=== PATIENT | female | born 1980 | race Caucasian/White ===

== ENCOUNTER → 2025-06-19 | Outpatient (CLI) | payer MEDICAID, SELFPAY ==
--- OUTSIDE RECORDS SUMMARY | 2025-06-19 22:57 | XMS RPT_ITS | CCD ---
Author Organization [facility] Care Team Providers Care Driver/Sales Workers Name Role Phone NO, PHYSICIAN Primary Care Unavailable NO, PHYSICIAN Primary Care Unavailable Unavailable Primary Care Provider Unavailabl e Marla Castellanos Attending Unavailable Unavailable Primary Care Provider Unavailabl e SWIATEK, YESSENIA Referring Unavailable SWIATEK, YESSENIA Attending Unavailable SWIATEK, YESSENIA Attending Unavailable SELF, SELF Referring Unavailable SELF, SELF Referring Unavailable SWIATEK, YESSENIA Attending Unavailable SWIATEK, YESSENIA Attending Unavailable SWIATEK, YESSENIA Referring Unavailable SWIATEK, YESSENIA Attending Unavailable SWIATEK, YESSENIA Referring Unavailable Judie Hardy Attending Provider Allergies Allergy Classification Reported Allergen(s) Allergy Type Date of Onset Reaction(s) Facility (8 sources) Codeine; Translations: [Unknown] Drug Allergy 3 Anaphylaxis, Dyspnea, Swelling [facility] Repository (1 source) Wheat preparation Drug Allergy [address] [facility] Repository (1 source) Milk Containing Products (Dairy) Drug allergy (disorder) [address] [facility] Repository (1 source) Wheat preparation Drug Allergy [address] [facility] (1 source) Milk Containing Products (Dairy) Allergy to substance [address] [facility] Medications Current Medications Medication Drug Class(es) Dates Sig (Normalized) Sig (Original) Magnesium (1 source) Start: 02-10-2025 take 1 tablet by mouth once daily Magnesium 200 mg tablet Active 200 mg PO daily February 10, 2025 12:00am Multivitamin tablet (1 source) Start: 02-10-2025 Multivitamin tablet Active 1 {tbl} PO EVERY MORNING February 10, 2025 12:00am saccharomyces boulardii 250 mg oral capsule (1 source) Start: 02-10-2025 take 1 capsule by mouth twice daily Saccharomyces Boulardii (Daily Probiotic (S. Boulardii)) 250 mg capsule Active 250 mg PO TWICE A DAY February 10, 2025 12:00am Completed/Discontinued Medications Medication Drug Class(es) Dates Sig (Normalized) Sig (Original) diclofenac sodium 75 mg delayed release oral tablet (3 sources) Nonsteroidal Anti-inflammatory Drug Start: 04-04-2025 End: 05-04-2025 take 1 tablet by mouth twice daily diclofenac EC [address] tablet Indications: Sprain of right foot, initial encounter Take 1 tablet by mouth 2 times daily for 10 days. 20 tablet 1 04/04/2025 05/04/2025 Discontinued (Therapy completed) Problems Active Problems Problem Classification Problem Date Documented Da te Episodic/Chronic Menstrual disorders (2 sources) Irregular periods; Translations: [Irregular menstruation, unspecified] 06-19-2025 Chronic Other connective tissue disease (2 sources) Pain of toe of right foot; Translations: [Pain in right toe(s)] 05-31-2024 Episodic Other connective tissue disease (4 sources) Pain in right foot; Translations: [Pain in right foot] Onset: 04-04-2025 04-04-2025 Episodic Other connective tissue disease (1 source) Tendinitis of right posterior tibial tendon; Translations: [Posterior tibial tendinitis, right leg] 05-04-2025 Episodic Other connective tissue disease (1 source) Pain in right foot; Translations: [Pain in right foot] Onset: 04-04-2025 Episodic Other diseases of bladder and urethra (1 source) Urethritis; Translations: [Other specified disorders of urethra] 06-19-2025 Episodic Sprains and strains (2 sources) Sprain of right foot; Translations: [Unspecified sprain of right foot, initial encounter] 04-04-2025 Episodic Unclassified (2 sources) Consult; Translations: [Consult] Onset: 04-04-2025 Past or Other Problems Problem Classification Problem Date Documented Da te Episodic/Chronic Other connective tissue disease (2 sources) Pain in right toe(s); Translations: [Pain in right toe(s)] Onset: 05-31-2024 Episodic Other injuries and conditions due to external causes (6 sources) Bone injury; Translations: [Other injury of unspecified body region, initial encounter] Onset: 05-31-2024 05-31-2024 Episodic Results Test Name Value Interpretation Reference Range Facil ity XR FOOT RIGHT 3+ VIEWSon XR FOOT RIGHT 3+ VIEWS HISTORY: 45-year-old female pain medial foot. COMPARISON: Right great toe 05/31/2024. TECHNIQUE: 3 views right foot, weightbearing. FINDINGS: Normal arch. No significant degenerative change. No stress fracture. No dislocation. Several incidental ossicles adjacent to the lateral aspect of the cuboid would not be acute. IMPRESSION: No explanation for pain. Normal [facility] XR TOE 1ST RIGHT 2+ VIEWSon 06-02-2024 XR TOE 1ST RIGHT 2+ VIEWS EXAM: XR TOE 1ST RIGHT 2+ VIEWS HISTORY: pain COMPARISON: None. FINDINGS/IMPRESSION: 1. No fracture or dislocation. 2. No opaque foreign body or significant degenerative change. Normal [facility] Vital Signs Date Time Vital Sign Value Performing Clinician Wilfredo hardwick 06-19-2025 09:12-0400 Body height 162.56 cm Judie Nunn EXPERIMENTAL ASSEMBLER-C Work Phone: [facility] 06-19-2025 09:12-0400 Body mass index (BMI) [Ratio] 21.2 kg/m2 Judie Nunn EXPERIMENTAL ASSEMBLER-C Work Phone: [facility] 06-19-2025 09:120400 Body weight 56.24 kg Judie Nunn EXPERIMENTAL ASSEMBLER-C Work Phone: [facility] 06-19-2025 09:12-0400 Diastolic blood pressure 68 mm[Hg] Judie Nunn EXPERIMENTAL ASSEMBLER-C Work Phone: [facility] 06-19-2025 09:12-0400 Systolic blood pressure 102 mm[Hg] Judie Nunn EXPERIMENTAL ASSEMBLER-C Work Phone: [facility] 05-04-2025 09:57-0400 Body height 162.6 cm Yessenia Freitas DPM Work Phone: [facility] 05-04-2025 09:57-0400 Body mass index (BMI) [Ratio] 20.25 kg/m2 Yessenia Freitas DPM Work Phone: [facility] 05-04-2025 09:57-0400 Body weight 53.52 kg Yessenia Swiatek DPM Work Phone: [facility] 05-04-2025 09:57-0400 Diastolic blood pressure 70 mm[Hg] Yessenia Ericatek DPM Work Phone: [facility] 05-04-2025 09:57-0400 Heart rate 60 /min Yessenia Reyesatek DPM Work Phone: [facility] 05-04-2025 09:57-0400 Systolic blood pressure 110 mm[Hg] Yessenia Reyesatek DPM Work Phone: [facility] 04-04-2025 12:32-0400 Body height 162.6 cm Yessenia Reyesatek DPM Work Phone: [facility] 04-04-2025 12:32-0400 Body mass index (BMI) [Ratio] 20.25 kg/m2 Yessenia Ericatek DPM Work Phone: [facility] 04-04-2025 12:32-0400 Body weight 53.52 kg Yessenia Reyesatek DPM Work Phone: [facility] 04-04-2025 12:32-0400 Diastolic blood pressure 82 mm[Hg] Yessenia Ericatek DPM Work Phone: [facility] 04-04-2025 12:32-0400 Heart rate 62 /min Yessenia Ericatek DPM Work Phone: [facility] 04-04-2025 12:32-0400 Systolic blood pressure 128 mm[Hg] Yessenia Ericatek DPM Work Phone: [facility] 05-31-2024 10:37-0400 Body height 162.6 cm Yessenia Ericatek DPM Work Phone: [facility] 05-31-2024 10:37-0400 Body mass index (BMI) [Ratio] 20.25 kg/m2 Yessenia Ericatek DPM Work Phone: [facility] 05-31-2024 10:37-0400 Body weight 53.52 kg Yessenia Freitas DPM Work Phone: [facility] 05-31-2024 10:37-0400 Diastolic blood pressure 60 mm[Hg] Yessenia Freitas DPM Work Phone: [facility] 05-31-2024 10:37-0400 Heart rate 73 /min Yessenia Freitas DPM Work Phone: [facility] 05-31-2024 10:37-0400 Systolic blood pressure 100 mm[Hg] Yessenia Freitas DPM Work Phone: [facility] Encounters Encounter Date Encounter Type Care Provider Facility Start: 06-19-2025 End: 06-19-2025 ambulatory Judie SEPULVEDA Work Phone: -[facility] @ Start: 06-19-2025 End: 06-19-2025 Patient encounter procedure Judie SEPULVEDA -[facility] @ Start: 06-19-2025 End: 06-19-2025 Patient encounter status Judie SEPULVEDA [facility] Start: 05-04-2025 End: 05-04-2025 Office outpatient visit 15 minutes Yessenia SAMM Work Phone: [facility] Comment on above: Posterior tibial ten dinitis, right (Primary Dx); Sprain of right foot, initial encounter; Pain in right foot Start: 05-04-2025 ambulatory [facility] Start: 04-04-2025 End: 04-04-2025 Office outpatient visit 15 minutes Yessenia Freitas DPM Work Phone: [facility] Comment on above: Sprain of right foot , initial encounter (Primary Dx); Pain in right foot Start: 04-04-[address] [facility] Start: 04-04-2025 End: 04-04-2025 Subsequent hospital visit by physician Yessenia Freitas DPM Work Phone: [facility] Comment on above: Arrived Start: 05-31-2024 End: 05-31-2024 Office outpatient visit 15 minutes Yessenia Freitas DPSylvie Work Phone: [facility] Comment on above: Contusion of bone (P rimary Dx); Toe pain, right Start: 05-31-[address] [facility] Start: 05-31-2024 End: 05-31-2024 Subsequent hospital visit by physician Yessenia Freitas DPSylvie Work Phone: [facility]3] IMAGING Comment on above: Arrived Start: 02-26-2022 ambulatory Marla Castellanos [facility] Start: 07-06-2020 End: 07-10-2020 Patient encounter procedure PHYSICIAN [facility] Start: 07-19-2019 End: 07-23-2019 Patient encounter procedure PHYSICIAN [facility] Plan of Treatment Date Care Activity Detail Author Start: 07-17-2025 Influenza vaccination INFLUENZ A VACCINE (Season Ended) [facility] Start: 05-04-2025 End: 05-04-2025 Patient encounter procedure 05/04/2025 10:10 AM EDT Office Visit [facility] [address] [place] [address] Yessenia Freitas, DPM [address] [place] [address] [facility] Start: 01-25-2025 Screening for malign ant neoplasm of colon COLORECTAL CANCER SCREENING DISCUSSION [facility] Start: 07-17-2024 COVID-19 VACCINE ( season) COVID-19 VACCINE ( season) [facility] Start: 07-17-2024 Influenza vaccination INFLUENZA VACC INE (#1) [facility] Start: 05-31-2024 End: 05-31-2025 XR Toes - right Views [facility] Comment on above: Expected: 05/31/2024 , Expires: 05/31/2025 1 Occurrences starti ng 05/31/2024 until 05/31/2024 Start: 07-17-2023 COVID-19 VACCINE ( season) COVID-19 VACCINE ( season) [facility] Start: 2020 Lipid panel LIPID SCREENING [facility] Start: 2020 Screening for malign ant neoplasm of breast MAMMOGRAM SCREENING DISCUSSION [facility] Start: 01-25-2001 Screening for malign ant neoplasm of cervix CERVICAL CANCER SCREENING DISCUSSION [facility] Start: 01-25-1999 Hepatitis B vaccination HEP B VACCINE (1 of 3 - 19+ 3-dose series) [facility] Start: 01-25-1999 Third diphtheria, tetanus and acellular pertussis (DTaP) vaccination TDAP (ADULT) [facility] Start: 01-25-1995 HIV screening HIV SCREENING DISCUSSION [facility] Start: 1980 Hepatitis C screening HEPATITI S C VIRUS SCREENING [facility] Start: 1980 Tetanus vaccination TETANUS [facility] Estradiol (E2) [Mass/volume] in Serum or Plasma [facility] Follicle stimulating hormone measurement [facility] T4 free measurement [facility] Thyroid stimulating hormone measurement [facility] End: 04-04-2025 XR Foot - right 3 Views [facility] Comment on above: 1 Occurrences starti ng 04/04/2025 until 04/04/2025 Payers Date Payer Category Payer Unknown [employer] [id number] 2024-Present [address] [place] [id number] 2023 Managed Care (unspecified) [employer] [id number] 2022 Self-pay 2022 Unknown [id number] 2020 Unknown [id number] 2018 Unknown [id number] 1980 Unknown [id number] 1980 Unknown [id number] 1980 Unknown [id number] 1980 Unknown [id number] 1980 Unknown [id number] 1980 Unknown [id number] 1980 Unknown [id number] Unknown [id number] Social History Date Type Detail Facility Start: 05-31-2024 End: 06-19-2025 Tobacco smoking status NHIS Never smoked tobacco [facility] Start: 05-31-2024 Tobacco use and exposure Smokeless tobacco non-user [facility] Start: 05-31-2024 End: 05-04-2025 History of Social function [facility] Start: 05-31-2024 End: 05-04-2025 Tobacco use panel [facility] Start: 1980 Sex assigned at Not on file A [facility] Start: 05-25-2024 Sex Female (finding) [facility] Start: 04-03-2025 Gender identity Identifies as female gender (finding) [facility] Start: 04-03-2025 Sexual orientation Heterosexual (fin ding) [facility] Start: 1980 Sex Assigned At Female [facility] Clinical Notes 05-31-2024 to 05-04-2025 Yessenia Freitas, FIDELIA - 05/04/2025 10:10 AM HORACIOmo Nam - 05/04/2025 10:10 AM EDJose Boland MA - 04/04/2025 1:00 PM Magdalena Freitas, FIDELIA - 04/04/2025 1:00 PM EDTPatient Instructions Note Date & Type Note Facility 05-04-2025 History of Presen t illness Narrative Patient: Breanna Menchaca Date: 05/04/2025 Chief Complaint: She is a 45 y.o. year old female who presents today with a complaint of No chief complaint on file. . Subjective: She states that her foot is is better when it is in the boot, but still has pain She has been in a cam walker for 4 weeks. 04/04/25 the right foot has been hurting for months. She has been doing trail running. Has been going to PT. No direct injury Allergies: Allergies Allergen Reactions Codeine Anaphylaxis, Dyspnea and Swelling Medications: Current Outpatient Medications: diclofenac EC [address] tablet, Take 1 tablet by mouth 2 times daily for 10 days., Disp: 20 tablet, Rfl: 1 No past medical history on file. No past surgical history on file. Social History Occupational History Employer: [employer] EMPLOY[employer] Tobacco Use Smoking status: Never Smokeless tobacco: Never Substance and Sexual Activity Alcohol use: Not on file Drug use: Not on file Sexual activity: Not on file @ROS@ No notes on file Objective: There were no vitals filed for this visit. Examination: The patient is appropriately dressed, articulate, awake, alert, and oriented x 3, appears stated age and looks to be in good health. Vascular: Dorsalis pedis and posterior tibial pulses are palpable right Dermatological: There is no evidence of: erythema, ecchymosis or open lesions to feet. Skin color is noted to be normal. Skin texture is noted to be normal Neurological: Gross and light sensations normal to lower extremity Normal muscle mass appreciated to both the lower extremity and foot right Musculoskeletal: neg pain right foot base of the 1st met at the 1st TMT + mild pain at the insertion of the posterior tibial tendon. And along the side of the ankle Impression: Breanna was seen today for follow-up. Diagnoses and all orders for this visit: Sprain of right foot, initial encounter Pain in right foot Posterior tibial tendinitis, right Treatment:Patient was seen and evaluated today in clinic and a history and physical exam was completed. The diagnosis and the etiology was explained to the patient in detail. The treatment plan will be as follows: Discontinue cam walker Will get a dbl strap don kathleen ankle brace Supportive shoe Start to increase activities in 2 weeks Diclofenac prn Follow up prn Nurse Note: Review of Systems Constitutional: Negative for fatigue, fever and unexpected weight change. HENT: No difficulty swallowing No change in voice Respiratory: Negative for cough, shortness of breath and wheezing. Cardiovascular: Positive for leg swelling. Negative for chest pain and palpitations. Gastrointestinal: Negative for constipation, diarrhea, nausea and vomiting. Neurological: Negative for tremors, weakness and numbness. Psychiatric/Behavioral: Negative for sleep disturbance. The patient is not nervous/anxious. Nursing Assessment: Physical Exam documented in this encounter [facility] 04-04-2025 History of Presen t illness Narrative Nurse Note: Review of Systems Constitutional: Negative for fatigue, fever and unexpected weight change. HENT: No difficulty swallowing No change in voice Respiratory: Negative for cough, shortness of breath and wheezing. Cardiovascular: Negative for chest pain, palpitations and leg swelling. Gastrointestinal: Negative for constipation, diarrhea, nausea and vomiting. Neurological: Negative for tremors, weakness and numbness. Psychiatric/Behavioral: Negative for sleep disturbance. The patient is not nervous/anxious. Nursing Assessment: Physical Exam Patient: Breanna Menchaca Date: 04/04/2025 Chief Complaint: She is a 45 y.o. year old female who presents today with a complaint of Chief Complaint Patient presents with Right Foot - Pain . Subjective: She states that the right foot has been hurting for months. She has been doing trail running. Has been going to PT. No direct injury Allergies: Allergies Allergen Reactions Codeine Anaphylaxis, Dyspnea and Swelling Medications: No current outpatient medications on file. No past medical history on file. No past surgical history on file. 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 HENT: No difficulty swallowing No change in voice Respiratory: Negative for cough, shortness of breath and wheezing. Cardiovascular: Negative for chest pain, palpitations and leg swelling. Gastrointestinal: Negative for constipation, diarrhea, nausea and vomiting. Neurological: Negative for tremors, weakness and numbness. Psychiatric/Behavioral: Negative for sleep disturbance. The patient is not nervous/anxious. Nursing Assessment: Physical Exam Objective: Vitals: 04/04/25 1232 BP: 128/82 Pulse: 62 Weight: 53.5 kg (118 lb) Height: 1.626 m (5' 4) Examination: The patient is appropriately dressed, articulate, awake, alert, and oriented x 3, appears stated age and looks to be in good health. Vascular: Dorsalis pedis and posterior tibial pulses are palpable bilateral. Capillary filling time is brisk at the level of the digital willy bilaterally. There are no ischemic skin changes evident to bilateral lower extremities. Dermatological: There is no evidence of: erythema, ecchymosis or open lesions to feet. Skin color is noted to be normal. Skin texture is noted to be normal Neurological: Gross and light sensations normal to lower extremity Normal muscle mass appreciated to both the lower extremity and foot bilateral. The patient can heel and toe walk with ease as well as arise from a seated position unassisted. Musculoskeletal: + pain right foot base of the 1st met at the 1st TMT and mild pain at posterior tibial tendon. No gross deformities. Appropriate muscle tone and symmetry bilateral lower extremities. Impression: Breanna was seen today for pain. Diagnoses and all orders for this visit: Sprain of right foot, initial encounter - diclofenac EC [address] tablet; Take 1 tablet by mouth 2 times daily for 10 days. Pain in right foot Treatment:Patient was seen and evaluated today in clinic and a history and physical exam was completed. The diagnosis and the etiology was explained to the patient in detail. The treatment plan will be as follows: Xray right foot No fracture Will go into cam walker for 4 weeks No running or extra walking The following medications were prescribed today and electronically sent to the patient's pharmacy: Diclofenac 75mg We have discussed what the medication is used for: frequency, length and expected response, as well as, risk, benefits and common side effects. Ice as directed Plan for ankle brace Follow up in 4 weeks documented in this encounter [facility] 04-04-2025 Instructions Yessenia Freitas DPM - 04/04/2025 1:00 PM EDT [employer] Drawer Hand Size Small for use with Walking Boot or leg length discrepancy. Improves your gait using a variety of height adjustments. Aircast AirSelect Walker Brace/Walking Boot (Elite, Short and Standard) Short cam walker Short Walking Boot Why do I have this boot? Dr. Freitas has put you in the boot to keep your foot and ankle from moving so it can heal. What is a walking boot? Similar to a hard cast, this boot will immobilize your foot This boot is removable and has air pockets on both sides of the foot and ankle. Only take the boot off if Dr. Freitas has instructed you to do so. Can I drive with my boot on? If you boot is on the right foot the answer is No. You can drive with the boot on the left foot if your vehicle is an automatic. Can I take my boot off to shower? Only if instructed by Dr. Freitas. Can I take my boot off to sleep? Only if instructed by Dr. Freitas We recommend that you put a pillow case over your boot to keep your bed clean. How do I ice my foot with the boot on? If instructed by Dr. Freitas you may open the boot and put ice on the affected area. Please use a cold ice pack. Real ice can melt and make your boot wet. How to: Inflate: 1st pull the Velcro strap snug, then: squeeze black bulb 5-6 pumps per side or until snug Deflate: hold in the small black button under the black bulb. Where does the hard front shell go? On the outside of the soft liner with word Aircast by your toes. What if I feel unstable? We advise you to use a cane or a walker What if my foot goes numb? Your foot is swelling- elevate your foot and let a littler air out of the boot What if I have pain in my calf muscle that does not go away? Call your doctor immediately , if it is on the weekend or evening go to the ER This could be a blood clot and needs to be evaluated. documented in this encounter [facility] 05-31-2024 History of Presen t illness Narrative Nurse Note: Review of Systems Constitutional: Negative for fatigue, fever and unexpected weight change. HENT: No difficulty swallowing No change in voice Respiratory: Negative for cough, shortness of breath and wheezing. Cardiovascular: Negative for chest pain, palpitations and leg swelling. Gastrointestinal: Negative for constipation, diarrhea, nausea and vomiting. Neurological: Negative for tremors, weakness and numbness. Psychiatric/Behavioral: Negative for sleep disturbance. The patient is not nervous/anxious. Nursing Assessment: Physical Exam Patient: Breanna Menchaca Date: 05/31/2024 Chief Complaint: She is a 44 y.o. year old female who presents today with a complaint of Chief Complaint Patient presents with Right Great Toe - Injury . Subjective: She states that she smashed her right great toe this past weekend by accident she dropped a suitcase on her toe. She notes that she felt a pop this morning and it is feeling better Allergies: Allergies Allergen Reactions Codeine Anaphylaxis, Dyspnea and Swelling Medications: No current outpatient medications on file. No past medical history on file. No past surgical history on file. 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 HENT: No difficulty swallowing No change in voice Respiratory: Negative for cough, shortness of breath and wheezing. Cardiovascular: Negative for chest pain, palpitations and leg swelling. Gastrointestinal: Negative for constipation, diarrhea, nausea and vomiting. Neurological: Negative for tremors, weakness and numbness. Psychiatric/Behavioral: Negative for sleep disturbance. The patient is not nervous/anxious. Nursing Assessment: Physical Exam Objective: Vitals: 05/31/24 1037 BP: 100/60 Pulse: 73 Weight: 53.5 kg (118 lb) Height: 1.626 m (5' 4) Examination: The patient is appropriately dressed, articulate, awake, alert, and oriented x 3, appears stated age and looks to be in good health. Vascular: Dorsalis pedis and posterior tibial pulses are palpable right Dermatological: no ecchymosis or open lesion right great toe Musculoskeletal: mild pain right IPJ with pressure and ROM No gross deformities. Impression: Breanna was seen today for injury. Diagnoses and all orders for this visit: Toe pain, right - XR TOE 1ST RIGHT 2+ VIEWS; Future Treatment:Patient was seen and evaluated today in clinic and a history and physical exam was completed. The diagnosis and the etiology was explained to the patient in detail. The treatment plan will be as follows: Xray right great toe No fracture Accessory bone at the plantar 1st IPJ Will take a week off running Avoid barefoot for 4 weeks Ice and nsaids prn Follow up prn documented in this encounter [facility] Evaluation note Diagnosis Contusion of bone- Primary Contusion of unspecified site Toe pain, right Pain in limb [facility], right [facility] Sprain of right foot, initial encounter- Primary Pain in right foot Pain in limb [facility] Pain in right foot Pain in [facility] Posterior tibial tendinitis, right- Primary Sprain of right foot, initial encounter Pain in right foot Pain in limb [facility] Onset Date Resolution Status Admit Date Irregular menstrual cycle acute June 19, 2025 8:55am Encounter for routine gynecological examination noneactive June 19, 2025 8:55am [facility] Work Phone: Reason for referral (narrative)No reason for referral information availableSen[facility] Work Phone: Summary Purpose Family History Relationship Condition Age at Onset Recorded Date/T miah father Amyotrophic lateral sclerosis Unknown brother Asthma Unknown sister Depression Unknown grandfather Diabetes mellitus Unknown Malignant neoplasm of skin Unknown grandmother Malignant neoplasm of skin Unknown Osteoporosis Unknown Advance Directives No Advanced Directives Records FoundNo Advanced Directives Records FoundNo Advanced Directives Records Found Chief Complaint and Reason for Visit Chief Complaint Admit Date 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, 2025 8:5 5am Reason for Visit Admit Date Irregular menstrual cycle June 19 8:55am Encounter for routine gynecological exam ination June 19, 2025 8:55am Additional Source Comments INFORMATION SOURCE (unrecogn ized section and content) DATE CREATED AUTHOR 07/10/2020 [facility] DATE CREATED AUTHOR AUTHOR'S ORGANIZ ATION 02/22/2025 [facility] DATE CREATED AUTHOR AUTHOR'S ORGANIZ ATION 05/07/2025 [facility] Reason for Visit (unrecogniz ed section and content) Reason Comments Injury Reason Comments Pain Reason Comments Follow-up Care Teams (unrecognized sec tion and content) Team Status: Inactive Member Role/Relationship Status Dates DERICK Shah Attending Provider Active Start: June 19, 2025 End: June 19, 2025 Goals (unrecognized section and content) Goals may be documented in a n alternate section FOR RECORDS PERTAINING TO PATIENTS WHO ARE OR HAVE BEEN ENROLLED IN A CHEMICAL DEPENDENCY/SUBSTANCEABUSE PROGRAM, SOME INFORMATION MAY BE OMITTED. This clinical summary was aggregated from multiple sources. Caution should be exercised in using it in the provision of clinical care. This summary normalizes information from multiple sources, and as a consequence, information in this document may materially change the coding, format and clinical context of patient data. In addition, data may be omitted in some cases. CLINICAL DECISIONS SHOULD BE BASED ON THE PRIMARY CLINICAL RECORDS. [employer] [facility]. provides no warranty or guarantee of the accuracy or completeness of information in this document.
== END | disposition home or self-care (01) ==
LOC: LABSPEC 16:23
PROVIDERS: Referring Provider Nurse Practitioner Family; Visit Provider Nurse Practitioner Family
DX: N36.8 Other specified disorders of urethra (principal)
CPT/HCPCS: 87070; 87205

== ENCOUNTER → 2025-06-21 | Outpatient (CLI) | payer MEDICAID, SELFPAY ==
[2025-06-21 16:19] LABS: Follicle Stimulating Hormone 133.0 mIU/mL
== END | disposition home or self-care (01) ==
PROVIDERS: Referring Provider Nurse Practitioner Family; Visit Provider Nurse Practitioner Family
DX: Z13.29 Encounter for screening for other suspected endocrine disorder (principal); N92.6 Irregular menstruation, unspecified
CPT/HCPCS: 36415; 82670; 83001; 84439; 84443

== ENCOUNTER → 2025-06-28 | Outpatient (CLI) | payer MEDICAID, SELFPAY ==
--- NOTE | 2025-06-28 14:00 | US_ITS ---
PROCEDURE: PELVIC W/ TRANSVAGINAL REASON FOR EXAM: POSTMENOPAUSAL BLEEDING TECHNIQUE: PELVIC W/ TRANSVAGINAL COMPARISON: None FINDINGS: LMP: April 24, 2025. Measurements: Uterus: 8.5 cm x 5.3 cm x 3.7 cm with a volume of 87.88 mL Endometrial Thickness: 4.4 mm Right Ovary: 2.3 cm x 1.8 cm x 1.6 cm with a volume of 3.39 mL. Left Ovary: 2.3 cm x 1.4 cm x 1.4 cm with a volume of 2.5 mL. TRANSABDOMINAL: Uterus: Heterogeneous myometrium suggestive of fibroid change. Nabothian cyst. Endometrium: Unremarkable. Right ovary: Complex solid and cystic heterogeneous nodular density in the right ovary with calcifications. This measures 1.8 cm x 3.2 cm. This may represent a dermoid cyst. Left ovary: Normal size and echotexture. Other: No large pelvic mass identified. Transvaginal sonography was performed to better visualize the endometrium. TRANSVAGINAL: Uterus: Heterogeneous echotexture suggestive of fibroid change. Endometrium: Normal echotexture. Right ovary: Complex nodule in the right ovary as described. Dermoid should be ruled out. Left ovary: Normal size and echotexture. Other adnexal findings: None. Cul-de-sac: No free intraperitoneal fluid identified. Tenderness: No tenderness US/Pelvic w/ Transvaginal IMPRESSION: Complex nodule in the right ovary as described. Dermoid should be ruled out. Reading Location: [place] [id number]
== END | disposition home or self-care (01) ==
LOC: US 13:57
PROVIDERS: Referring Provider Nurse Practitioner Family; Visit Provider Nurse Practitioner Family
DX: N95.0 Postmenopausal bleeding (principal)
CPT/HCPCS: 76830; 76856

== ENCOUNTER → 2025-07-07 | Outpatient (CLI) | payer MEDICAID, SELFPAY ==
[2025-07-12 12:54] LABS: Carcinoembryonic Antigen 1.4 ng/mL (0.0-4.7)
== END | disposition home or self-care (01) ==
LOC: LAB 15:15
PROVIDERS: PCP Case Manager/Care Coordinator; Referring Provider Nurse Practitioner Family; Visit Provider Nurse Practitioner Family
DX: N83.209 Unspecified ovarian cyst, unspecified side (principal)
CPT/HCPCS: 36415; 82378; 86304